=== PATIENT | female | born 1980 ===

== ENCOUNTER 2018-01-14 03:48 | Emergency (ER) | payer SELFPAY ==
[2018-01-14 03:48] VITALS: BMI 36.2
[2018-01-14 03:59] VITALS: TEMP 98.1
--- NOTE | 2018-01-14 04:17 | C.PDOC ---
History Of Present Illness 37 years old female presents to ED for complaints of bilateral ankle swelling. Patient states she feels restless. Denies fever, chills, nausea, and vomiting. Time Seen by Provider: 01/14/18 04:16 Chief Complaint (Nursing): Lower Extremity Problem/Injury History Per: Patient History/Exam Limitations: no limitations Onset/Duration Of Symptoms: Hrs Current Symptoms Are (Timing): Still Present Severity: Moderate Pain Scale Rating Of: 4 Recent travel outside of the [place]: No Past Medical History Reviewed: Historical Data, Nursing Documentation, Vital Signs Vital Signs: Last Vital Signs Temp 98.1 F 01/14/18 06:22 Pulse 71 01/14/18 06:22 Resp 16 01/14/18 06:22 BP 114/78 01/14/18 06:22 Pulse Ox 100 01/14/18 06:25 - Medical History PMH: No Chronic Diseases Surgical History: Family History: States: Unknown Family Hx, Hypertension - Social History Hx Alcohol Use: No Hx Substance Use: No - Immunization History Hx Tetanus Toxoid Vaccination: No Hx Influenza Vaccination: No Hx Pneumococcal Vaccination: No Review Of Systems Constitutional: Negative for: Fever, Chills Gastrointestinal: Negative for: Nausea, Vomiting, Abdominal Pain, Diarrhea Skin: Positive for: Other (Bilateral ankle swelling). Negative for: Rash Neurological: Negative for: Weakness, Numbness Psych: Negative for: Anxiety Physical Exam - Physical Exam Appears: Non-toxic, No Acute Distress Skin: Warm, Dry Head: Normacephalic Eye(s): bilateral: Normal Inspection Oral Mucosa: Moist Neck: Supple Chest: Symmetrical Cardiovascular: Rhythm Regular Respiratory: No Rales, No Rhonchi, No Wheezing Gastrointestinal/Abdominal: Soft, No Tenderness Extremity: Normal ROM, Pedal Edema (Mild Trace ), No Deformity Extremity: Bilateral: Normal Color And Temperature, Normal ROM Neurological/Psych: Oriented x3, Normal Speech (Speaking in full sentence ), Other (No focal deficits ) Gait: Steady ED Course And Treatment - Laboratory Results Result Diagrams: 01/14/18 04:52 01/14/18 04:52 ECG: Interpreted By Me, Viewed By Me ECG Rhythm: Sinus Rhythm (77), Nonspecific Changes O2 Sat by Pulse Oximetry: 100 (RA) Pulse Ox Interpretation: Normal - Radiology CXR: Interpreted by Me, Viewed By Me CXR Interpretation: No: Infiltrates, Fracture, Pnemothorax Progress Note: Ordered blood work, EKG, and urinalysis. Reevaluation Time: 06:23 Reassessment Condition: Improved Disposition Counseled Patient/Family Regarding: Studies Performed, Diagnosis, Need For Followup - Disposition Referrals: [facility] [Outside] [facility] [Outside] Disposition: HOME/ ROUTINE Disposition Time: 04:17 Condition: FAIR Additional Instructions: Please return if symptoms recur Instructions: Dependent Edema (DC) Forms: [employer] ([place]) Print Language: ROMANIAN - Clinical Impression Clinical Impression: Dependent edema - Scribe Statement The provider has reviewed the documentation as recorded by the Scribkasey Fonseca All medical record entries made by the Scribe were at my direction and personally dictated by me. I have reviewed the chart and agree that the record accurately reflects my personal performance of the history, physical exam, medical decision making, and the department course for this patient. I have also personally directed, reviewed, and agree with the discharge instructions and disposition.
[2018-01-14 05:02] LABS: BASO # 0.3 K/uL (0.0-0.2); EOS # 0.2 K/uL (0.0-0.7); EOS % 2.4 % (0.0-4.0); HEMOGLOBIN 10.6 g/dL (11.0-16.0); LYMPH # 1.5 K/uL (1.0-4.3); LYMPH % 15.2 % (20.0-40.0); MEAN CELL VOLUME 79.7 fL (81.0-99.0); MEAN CORPUSCULAR HEMOGLOBIN 25.9 pg (27.0-31.0); MEAN CORPUSCULAR HGB CONC 32.5 g/dL (33.0-37.0); MEAN PLATELET VOLUME 7.4 fL (7.2-11.7); MONO # 1.1 K/uL (0.0-0.8); MONO % 11.1 % (0.0-10.0); NEUT # 6.9 K/uL (1.8-7.0); NEUT % 68.3 % (50.0-75.0); RBC 4.1 Mil/uL (3.80-5.20); RED CELL DISTRIBUTION WIDTH 14.8 % (11.5-14.5); WHITE BLOOD COUNT 10.1 K/uL (4.8-10.8)
[2018-01-14 05:06] LABS: SQUAMOUS EPITHIAL 2 /hpf (0-5); URINE BACTERIA RARE (<OCC); URINE BILIRUBIN NEGATIVE (NEGATIVE); URINE BLOOD 2+ (NEGATIVE); URINE CLARITY Clear (Clear); URINE COLOR Yellow (YELLOW); URINE GLUCOSE (UA) NORMAL (Normal); URINE LEUKOCYTE ESTERASE TRACE Leu/uL (Negative); URINE PROTEIN 3+ mg/dL (NEGATIVE); URINE UROBILINOGEN NORMAL mg/dL (0.2-1.0)
[2018-01-14 05:06] LABS: ALB/GLOB RATIO 0.9 (1.0-2.1); ALBUMIN 2.5 g/dL (3.5-5.0); ALT/SGPT 48 U/L (9-52); AST/SGOT 44 U/L (14-36); BLOOD UREA NITROGEN 9 mg/dL (7-17); CALCIUM 7.6 mg/dl (8.6-10.4); GFR AFRICAN-AMERICAN > 60; GFR NON-AFRICAN AMERICAN > 60
[2018-01-14 05:07] LABS: HCG,QUALITATIVE URINE NEGATIVE (NEGATIVE)
[2018-01-14 05:07] LABS: PROTHROMBIN TIME 10.9 SECONDS (9.7-12.2)
[2018-01-14 05:18] LABS: B-TYPE NATRIURETIC PEPTIDE 189 pg/mL (0-450)
[2018-01-14 06:22] VITALS: BP 114/78; PULSE 71; RESP 16
[2018-01-14 06:25] VITALS: O2SAT 100
--- NOTE | 2018-01-14 10:25 | RAD ---
PROCEDURE: CHEST RADIOGRAPH, 1 VIEW HISTORY: leg edema COMPARISON: None available. FINDINGS: LUNGS: Clear. PLEURA: No pneumothorax or pleural fluid seen. CARDIOVASCULAR: Normal. OSSEOUS STRUCTURES: No significant abnormalities. VISUALIZED UPPER ABDOMEN: Normal. OTHER FINDINGS: None. IMPRESSION: No active disease.
== END 2018-01-14 06:49 | disposition home or self-care (01) ==
LOC: C.ER 03:48
DX: R60.9 Edema, unspecified (principal)

== ENCOUNTER 2018-08-17 10:23 | Outpatient (CLI) | payer OTHER | END 2018-08-17 10:24 | disposition home or self-care (01) | LOC: C.LAB 10:23 | DX: N04.9 Nephrotic syndrome with unspecified morphologic changes (principal) ==

== ENCOUNTER 2018-11-18 06:53 | Day surgery (SDC) | payer OTHER ==
[2018-11-18 07:15] VITALS: BMI 31.6
--- NOTE | 2018-11-18 10:23 | CP.SDSHP ---
<Bassam Zamora - Last Filed: 11/18/18 10:20> Same Day Surgery H & P - History Proposed Procedure: EGD Pre-Op Diagnosis: epigastric pain, chronic heartburn, persistent H. pylori gastritis - Previous Medical/Surgical History Cardiac: Hypertension Endocrine/Metabolic: Thyroid Disease Previous Surgical History: - Allergies Allergies: Allergies No Known Allergies Allergy (Unverified 11/10/18 12:34) - Current Medications Current Medications: levothyroxine lisinopril - Physical Exam General Appearance: no acute distress Vital Signs: Vital Signs 11/18/18 07:15 Temperature 98 F Pulse Rate 77 Respiratory 19 Rate Blood Pressure 111/77 O2 Sat by Pulse 100 Oximetry Mental Status: Alert & Oriented x3 Neuro: WNL Heart: WNL Lungs: WNL GI: WNL - {Optional Preform as Required} Abdomen: WNL - Impression Impression: epigastric pain. recurrent reflux. persistent h. pylori gastritis Pt. Evaluated Today:Candidate for Anesthesia & Procedure: Yes - Date & Time Date: 11/18/18 Time: 10:00 Short Stay Discharge - Short Stay Discharge Admitting Diagnosis/Reason for Visit: EPIGASTRIC PAIN/HEARTBURN/NAUSEA W/VOMITING UNSPE Disposition: HOME/ ROUTINE <Pancho Maki - Last Filed: 11/18/18 11:26> Same Day Surgery H & P - Allergies Allergies: Allergies No Known Allergies Allergy (Unverified 11/10/18 12:34) - Physical Exam Vital Signs: Vital Signs 11/18/18 11/18/18 07:15 11:18 Temperature 98 F 98 F Pulse Rate 77 77 Respiratory 19 19 Rate Blood Pressure 111/77 111/77 O2 Sat by Pulse 100 100 Oximetry Attending/Attestation - Attestation Notes (Text): 11/18/18 11:25 for EGD to evaluate persistent H pylori , heartburn and epigastric pain Risks/benefits discusssed in detail.
[2018-11-18] MEDS ORDERED: Propofol 10 mg/ml Inj (20 ML) ONE (11:22)
[2018-11-18 12:17] VITALS: TEMP 98.6
[2018-11-18 12:25] VITALS: O2SAT 100
[2018-11-18 14:01] VITALS: BP 121/70; PULSE 69; RESP 20
== END 2018-11-18 13:00 | disposition home or self-care (01) ==
LOC: C.ENDO 06:53 → MERGE 08:00 → C.ENDO 13:00
PROVIDERS: ATTEND Internal Medicine Gastroenterology
DX: K21.0 Gastro-esophageal reflux disease with esophagitis (principal); K29.50 Unspecified chronic gastritis without bleeding; K26.9 Duodenal ulcer, unspecified as acute or chronic, without hemorrhage or perforation; R10.13 Epigastric pain; R12 Heartburn; R11.2 Nausea with vomiting, unspecified; B96.81 Helicobacter pylori [H. pylori] as the cause of diseases classified elsewhere; I10 Essential (primary) hypertension; E07.9 Disorder of thyroid, unspecified; Z79.899 Other long term (current) drug therapy
CPT/HCPCS: 43239; 84703; 88305; 88312; 88313; 88342; J2001; J2704